=== PATIENT | male | born 1975 | race African-American/Black ===

== ENCOUNTER 2017-06-09 20:33 | Emergency (ER) | payer MEDICAID ==
[~2017-06-09] VITALS: Ht 185.4 cm; Wt 106.6 kg
[2017-06-09 22:00] VITALS: BP 151/74
[2017-06-09] MEDS ORDERED: KETOROLAC TROMETH 60MG/2ML VIAL IM ONE (22:15)
[2017-06-09] MEDS ORDERED: MORPHINE SULFATE 10 MG/5 ML ORAL SOLN PO ONE (22:15)
== END 2017-06-09 22:45 | disposition home or self-care (01) ==
LOC: ER 20:45
DX: G89.29 Other chronic pain (principal); M54.5 Low back pain
CPT/HCPCS: 96372; 99283; J1885

== ENCOUNTER 2018-07-22 12:57 | Emergency (ER) | payer MEDICAID ==
[~2018-07-22] VITALS: Ht 185.4 cm; Wt 99.8 kg
[2018-07-22 14:00] LABS: Basophils # (auto) 0.1 uL; Eosinophils # (auto) 0.1 uL; Lymphocytes # (auto) 1.2 uL; Monocytes # (auto) 0.4 uL; Platelet Count (auto) 157 10^3/uL (140-450); White Blood Cell 5.8 10^3/uL (4.4-10.8)
[2018-07-22 14:02] LABS: Basophils % (auto) 1.9 % (0.0-2.0); Hematocrit 38.5 % (41.0-53.0); Hemoglobin 12.9 g/dL (13.5-17.5); Lymphocytes % (auto) 20.3 % (10.0-50.0); Mean Corpuscular Hemoglobin 34.3 pg (28.0-32.0); Mean Corpuscular Hgb Conc. 33.6 g/dL (32.0-36.0); Mean Corpuscular Volume 102.3 fL (80.0-100.0); Monocytes % (auto) 7.6 % (0.0-12.0); Neutrophils % (auto) 68.2 % (37.0-80.0); Nucleated Red Blood Cells % 0.1 %; Red Blood Cells 3.76 10^6/uL (4.5-5.90); Red Cell Distribution Width 13.4 % (11.8-14.3)
[2018-07-22 14:12] LABS: Urine Bacteria NONE SEEN /hpf (None Seen); Urine Blood Negative /uL (Negative); Urine Mucus FEW (None Seen); Urine Specific Gravity 1.029 (1.001-1.035); Urine WBC 1 /hpf (0 - 3)
[2018-07-22 14:23] LABS: Albumin 3.7 g/dL (3.4-5.0); Bilirubin, Total 0.7 mg/dL (0.2-1.0); Potassium 3.9 mmol/L (3.5-5.1); Total Protein 6.9 g/dL (6.4-8.2)
[2018-07-22 14:57] VITALS: BP 123/60
== END 2018-07-22 15:18 | disposition home or self-care (01) ==
LOC: ER 12:59
DX: K64.9 Unspecified hemorrhoids (principal); K40.90 Unilateral inguinal hernia, without obstruction or gangrene, not specified as recurrent; F17.210 Nicotine dependence, cigarettes, uncomplicated; F12.10 Cannabis abuse, uncomplicated
CPT/HCPCS: 36415; 74176; 80053; 81001; 85025

== ENCOUNTER 2023-03-28 18:47 | Emergency (ER) | payer MEDICAID ==
[~2023-03-28] VITALS: Ht 185.4 cm; Wt 100.0 kg
[2023-03-28 20:45] VITALS: BP 128/93
[2023-03-28] MEDS ORDERED: IBUP800T27 PO (20:52)
== END 2023-03-28 21:27 | disposition home or self-care (01) ==
LOC: ER 18:47
DX: M79.641 Pain in right hand (principal); F12.10 Cannabis abuse, uncomplicated; W18.31XA Fall on same level due to stepping on an object, initial encounter; Y93.67 Activity, basketball; Y92.89 Other specified places as the place of occurrence of the external cause; Y99.8 Other external cause status
CPT/HCPCS: 73130